=== PATIENT | male | born 1965 | race Caucasian/White ===

== ENCOUNTER 2018-05-31 23:18 | Inpatient (IN) | payer BC ==
[~2018-05-31] VITALS: Ht 182.9 cm; Wt 126.6 kg
[2018-05-31] MEDS ORDERED: SODIUM CHLORIDE 0.9% 1,000 ML IV ONE (23:36)
[2018-05-31] MEDS ORDERED: LORAZEPAM 2MG/ML CPJ IV STA (23:36)
[2018-06-01] LABS: EOSINOPHILS % 1.9 % (0.0-5.0); HEMATOCRIT. 42.9 % (42.0-52.0); HEMOGLOBIN. 14.6 g/dL (14.0-18.0); LYMPHOCYTES % 20.8 % (20.0-50.0); MEAN CORPUSCULAR HEMOGLOBIN 29.2 pg (28.0-32.0); MEAN CORPUSCULAR VOLUME 85.8 fL (80.0-94.0); MEAN PLATELET VOLUME 7.9 fl (7.4-10.4); MONOCYTES % 7.4 % (2.0-8.0); NEUTROPHILS % 68.9 % (40.0-76.0); PLATELET 182 x1000/uL (130-400); RED BLOOD CELL COUNT 4.99 mill/uL (4.7-6.1)
[2018-06-01 00:12] LABS: CHLORIDE 97 mEq/L (98-107); ETHANOL BLOOD < 10 mg/dL
[2018-06-01 00:14] LABS: AMMONIA 13 uMol/L (<32)
[2018-06-01 00:17] LABS: CLARITY URINE CLEAR (CLEAR); COLOR URINE YELLOW (YELLOW); KETONES URINE TRACE (NEGATIVE); LEUKOCYTE ESTERASE URINE NEGATIVE (NEGATIVE); NITRITE URINE NEGATIVE (NEGATIVE); OCCULT BLOOD URINE NEGATIVE (NEGATIVE); PH URINE 6.5 (4.5-8.0); PROTEIN URINE NEGATIVE (NEGATIVE); SPECIFIC GRAVITY URINE 1.003 (1.005-1.030)
[2018-06-01 00:23] LABS: INR 1.1; PARTIAL THROMBOPLASTIN TIME 27.8 sec (23.4-31.0); PROTHROMBIN TIME 10.9 sec (9.1-11.1)
[2018-06-01 00:36] LABS: *BENZODIAZEPINES SCREEN URINE NEGATIVE (NEGATIVE); *COCAINE SCREEN URINE NEGATIVE (NEGATIVE)
[2018-06-01 00:37] LABS: *AMPHETAMINES SCREEN URINE NEGATIVE (NEGATIVE); *BARBITURATES SCREEN URINE NEGATIVE (NEGATIVE); CANNABINOID URINE SCREEN NEGATIVE (NEGATIVE); METHADONE URINE SCREEN PRESUMTIVE POSITIVE (NEGATIVE); OPIATES URINE SCREEN NEGATIVE (NEGATIVE); PHENCYCLIDINE URINE SCREEN NEGATIVE (NEGATIVE)
[2018-06-01] MEDS ORDERED: GLUCAGON,HUMAN RECOMBINANT 1MG/VIAL IV ONE (00:45)
[2018-06-01] MEDS ORDERED: SODIUM CHLORIDE 0.9% 1,000 ML IV ONE (00:45)
[2018-06-01] MEDS ORDERED: CALCIUM GLUCONATE 100MG/ML 10ML VIAL IV ONE (01:00)
[2018-06-01] MEDS ORDERED: NALOXONE HCL 1 MG/ML 2ML VIAL IV NR (01:15)
[2018-06-01] MEDS ORDERED: CLONIDINE 0.1MG TABLET PO PRN (06:30)
[2018-06-01 09:12] LABS: CHLORIDE 104 mEq/L (98-107)
[2018-06-01] MEDS ORDERED: CEFTRIAXONE 1 G PREMIX 50 ML IV SCH (13:15)
[2018-06-01] MEDS ORDERED: ACETAMINOPHEN 325MG TABLET PO PRN (14:28)
[2018-06-01] MEDS ORDERED: DIPHENHYDRAMINE 50MG/ML VIAL IV PRN (14:28)
[2018-06-01] MEDS ORDERED: IPRATROPIUM/ALBUTEROL 0.5-3(2.5)MG/3ML NEB INH PRN (14:29)
[2018-06-01] MEDS ORDERED: NA PHOS,M-B/NA PHOS,DI-BA ENEMA 118ML PR PRN (14:29)
[2018-06-01] MEDS ORDERED: GUAIFENESIN 200MG/10ML SUGAR FREE UDC PO PRN (14:30)
[2018-06-01] MEDS ORDERED: MAGNESIUM/ALUMINUM HYDROXIDE/SIMETHICONE 30ML UDC PO PRN (14:30)
[2018-06-01] MEDS ORDERED: ONDANSETRON HCL 4MG/2ML INJ IV PRN (14:31)
[2018-06-01] MEDS ORDERED: DOCUSATE SODIUM 100MG CAPSULE PO PRN (14:31)
[2018-06-01 15:04] LABS: BASOPHILS % 0.3 % (0.0-2.0); EOSINOPHILS % 1.9 % (0.0-5.0); HEMATOCRIT. 39.7 % (42.0-52.0); HEMOGLOBIN. 13.7 g/dL (14.0-18.0); LYMPHOCYTES % 14.5 % (20.0-50.0); MEAN CORPUSCULAR HEMOGLOBIN 29.8 pg (28.0-32.0); MEAN CORPUSCULAR VOLUME 86.5 fL (80.0-94.0); MEAN PLATELET VOLUME 8.4 fl (7.4-10.4); MONOCYTES % 4.2 % (2.0-8.0); NEUTROPHILS % 79.1 % (40.0-76.0); PLATELET 166 x1000/uL (130-400); RED CELL DISTRIBUTION WIDTH 16.1 % (11.6-14.6)
[2018-06-01] MEDS ORDERED: POTASSIUM CHLORIDE 20MEQ TABLET SR PO NR (17:00)
[2018-06-01 21:52] VITALS: BP 139/52
[2018-06-01 21:55] VITALS: BP 139/52
[2018-06-02] VITALS (8 sets, daily range): BP systolic 104–138; BP diastolic 57–94
[2018-06-02] MEDS: HYDROCODONE/ACETAMINOPHEN 5/325MG TABLET PO PRN ×5 (00:56→23:25)
[2018-06-02] MEDS: SODIUM CHLORIDE 0.45% 1,000 ML IV SCH ×2 (00:56→12:36)
[2018-06-02] MEDS: ENOXAPARIN 30MG/0.3ML SYR SUBCUT SCH ×3 (01:06→20:24)
[2018-06-02] MEDS: LEVOFLOXACIN 750MG PREMIX 150 ML IV SCH (01:20)
[2018-06-02 06:52] LABS: BASOPHILS % 0.6 % (0.0-2.0); EOSINOPHILS % 4.4 % (0.0-5.0); HEMATOCRIT. 38.9 % (42.0-52.0); HEMOGLOBIN. 13.5 g/dL (14.0-18.0); LYMPHOCYTES % 23.9 % (20.0-50.0); MEAN CORPUSCULAR HEMOGLOBIN 29.8 pg (28.0-32.0); MEAN CORPUSCULAR VOLUME 86.2 fL (80.0-94.0); MEAN PLATELET VOLUME 8.5 fl (7.4-10.4); MONOCYTES % 7.6 % (2.0-8.0); NEUTROPHILS % 63.5 % (40.0-76.0); PLATELET 143 x1000/uL (130-400); RED BLOOD CELL COUNT 4.51 mill/uL (4.7-6.1); RED CELL DISTRIBUTION WIDTH 15.6 % (11.6-14.6)
[2018-06-02 08:28] LABS: CHLORIDE 106 mEq/L (98-107)
[2018-06-02 08:50] LABS: CREATINE KINASE 52 IU/L (39-308); CREATINE KINASE MB FRACTION < 1.0 ng/mL (0.5-3.6); HDL CHOLESTEROL 56 mg/dL (40-59); LDL CHOLESTEROL 82 mg/dL (5-100); T4 FREE 1.21 ng/dL (0.76-1.46)
[2018-06-02] MEDS: ASPIRIN 81MG EC TABLET PO SCH ×2 (09:00→09:17)
[2018-06-02] MEDS ORDERED: LANS30CA55 MT (09:38)
[2018-06-02] MEDS ORDERED: METH-611 MT (09:38)
[2018-06-02] MEDS ORDERED: LABE100T5 MT (09:38)
[2018-06-02] MEDS ORDERED: IRBE150T27 MT (09:38)
[2018-06-02] MEDS ORDERED: CYCL10TA7 MT (09:38)
[2018-06-02] MEDS ORDERED: HYDR12.54 MT (09:38)
[2018-06-02] MEDS ORDERED: FINA1TAB18 MT (09:38)
[2018-06-02] MEDS ORDERED: BUPR75TA8 PO (09:38)
[2018-06-02] MEDS ORDERED: BUPR-102 MT (09:39)
[2018-06-02] MEDS ORDERED: POTASSIUM CHLORIDE 20MEQ TABLET SR PO SCH (10:45)
[2018-06-02] MEDS: FINASTERIDE 5MG TABLET PO SCH (12:37)
[2018-06-02] MEDS: HYDROCHLOROTHIAZIDE 12.5MG CAPSULE PO SCH ×2 (12:37→20:24)
[2018-06-02] MEDS: BUPROPION HCL 150MG TABLET XL 24HR PO SCH (12:37)
[2018-06-02] MEDS: LORAZEPAM 2MG/ML CPJ IV PRN ×2 (15:34→20:21)
[2018-06-02] MEDS ORDERED: LANSOPRAZOLE MT SCH (17:00)
[2018-06-02] MEDS: OMEPRAZOLE 20MG CAPSULE EXTENDED RELEASE PO SCH (18:17)
[2018-06-03] MEDS: LEVOFLOXACIN 750MG PREMIX 150 ML IV SCH (00:29)
[2018-06-03] MEDS: SODIUM CHLORIDE 0.45% 1,000 ML IV SCH (00:29)
[2018-06-03] MEDS: LORAZEPAM 2MG/ML CPJ IV PRN ×4 (00:32→13:06)
[2018-06-03] MEDS: HYDROCODONE/ACETAMINOPHEN 5/325MG TABLET PO PRN ×3 (04:40→13:06)
[2018-06-03] MEDS: FINASTERIDE 5MG TABLET PO SCH (06:32)
[2018-06-03] MEDS: OMEPRAZOLE 20MG CAPSULE EXTENDED RELEASE PO SCH (06:32)
[2018-06-03 06:43] LABS: BASOPHILS % 0.6 % (0.0-2.0); EOSINOPHILS % 3.8 % (0.0-5.0); HEMATOCRIT. 40.7 % (42.0-52.0); HEMOGLOBIN. 14.3 g/dL (14.0-18.0); LYMPHOCYTES % 22.7 % (20.0-50.0); MEAN CORPUSCULAR HEMOGLOBIN 30.2 pg (28.0-32.0); MEAN CORPUSCULAR VOLUME 85.9 fL (80.0-94.0); MEAN PLATELET VOLUME 8.5 fl (7.4-10.4); MONOCYTES % 9.2 % (2.0-8.0); NEUTROPHILS % 63.7 % (40.0-76.0); PLATELET 151 x1000/uL (130-400); RED BLOOD CELL COUNT 4.73 mill/uL (4.7-6.1); RED CELL DISTRIBUTION WIDTH 15.9 % (11.6-14.6)
[2018-06-03 07:53] VITALS: BP 108/68
[2018-06-03 07:57] LABS: CHLORIDE 105 mEq/L (98-107)
[2018-06-03] MEDS: ENOXAPARIN 30MG/0.3ML SYR SUBCUT SCH (08:00)
[2018-06-03] MEDS: HYDROCHLOROTHIAZIDE 12.5MG CAPSULE PO SCH (08:01)
[2018-06-03] MEDS: ASPIRIN 81MG EC TABLET PO SCH (08:03)
[2018-06-03] MEDS: BUPROPION HCL 150MG TABLET XL 24HR PO SCH (08:03)
[2018-06-03 11:51] VITALS: BP 138/93
[2018-06-03 14:39] VITALS: BP 138/93
[2018-06-03 15:31] VITALS: BP 142/88
[2018-06-03] MEDS ORDERED: INFLUENZA VIRUS VACCINE(AFLURIA) 0.5ML SYR IM ONE (16:00)
== END 2018-06-03 16:26 | disposition home or self-care (01) | DRG 917 ==
LOC: ER 23:18 → EDBEDREQSVC 06-01 12:37 → EDBEDREQ 06-01 12:38 → ENRESERV 06-01 19:16 → 6WST 06-01 22:01
PROVIDERS: ADMIT Internal Medicine; ATTEND Internal Medicine
DX: T40.3X2A Poisoning by methadone, intentional self-harm, initial encounter (principal); G92 Toxic encephalopathy; F11.20 Opioid dependence, uncomplicated; E87.6 Hypokalemia; F32.9 Major depressive disorder, single episode, unspecified; E66.01 Morbid (severe) obesity due to excess calories; E86.0 Dehydration; F10.10 Alcohol abuse, uncomplicated; M54.5 Low back pain; I11.9 Hypertensive heart disease without heart failure; F41.9 Anxiety disorder, unspecified; T44.8X2A Poisoning by centrally-acting and adrenergic-neuron-blocking agents, intentional self-harm, initial encounter; T48.1X2A Poisoning by skeletal muscle relaxants [neuromuscular blocking agents], intentional self-harm, initial encounter; R91.8 Other nonspecific abnormal finding of lung field; G40.909 Epilepsy, unspecified, not intractable, without status epilepticus; G89.4 Chronic pain syndrome; Z63.0 Problems in relationship with spouse or partner; Z68.37 Body mass index [BMI] 37.0-37.9, adult; Z88.0 Allergy status to penicillin; Z71.41 Alcohol abuse counseling and surveillance of alcoholic; Z71.51 Drug abuse counseling and surveillance of drug abuser; Y92.89 Other specified places as the place of occurrence of the external cause; Z86.14 Personal history of Methicillin resistant Staphylococcus aureus infection; Z88.2 Allergy status to sulfonamides; Z91.048 Other nonmedicinal substance allergy status
CPT/HCPCS: 36415; 71045; 80048; 80061; 80305; 80307; 80329; 82140; 82550; 82553; 82962; 83605; 83735; 83880; 84439; 84443; 84484; 90686; 93005; 93306; 96374; 96375; 99285; G0482; J0610; J1610; J1650; J1956; J2060; J7030